=== PATIENT | male | born 1945 | race Caucasian/White ===

== ENCOUNTER 2018-03-30 05:51 | Emergency (ER) | payer MEDICARE, OTHER ==
[~2018-03-30] VITALS: Ht 182.9 cm; Wt 68.9 kg
[2018-03-30] MEDS ORDERED: SODIUM CHLORIDE 0.9% 1000ML 1,000 ML IV STA (06:20)
[2018-03-30 06:24] LABS: BASOPHILS % 0.2 % (0.0-1.0); EOSINOPHILS # (AUTO) 0.1 (0.0-0.4); EOSINOPHILS % 0.5 % (0.0-6.0); HEMATOCRIT 37.2 % (38.2-49.6); LYMPHOCYTES % 8.2 % (18.0-39.1); MEAN CORPUSCULAR HEMOGLOBIN 33.3 pg (28-32); MEAN CORPUSCULAR HGB CONC 34.9 g/dL (31-35); MEAN CORPUSCULAR VOLUME 95.4 fL (81-99); MONOCYTES # (AUTO) 0.5 (0.2-0.8); MONOCYTES % 3.9 % (4.4-11.3); NEUTROPHILS # (AUTO) 10.5 (2.1-6.9); NEUTROPHILS % 86.9 % (38.7-80.0); PLATELET COUNT 206 x10e3/uL (140-360); RED CELL DISTRIBUTION WIDTH 13.2 % (11.7-14.4)
[2018-03-30 06:28] LABS: CLARITY,URINE CLEAR (CLEAR); COLOR,URINE YELLOW (YELLOW)
[2018-03-30 06:29] LABS: BILIRUBIN,URINE NEGATIVE (NEGATIVE); KETONES,URINE NEGATIVE (NEGATIVE); LEUKOCYTE ESTERASE ,URINE NEGATIVE (NEGATIVE); NITRITE,URINE NEGATIVE (NEGATIVE); PROTEIN,URINE DIPSTICK NEGATIVE (NEGATIVE); URINE UROBILINOGEN 0.2 mg/dL (0.2 - 1)
[2018-03-30 06:40] LABS: WBC,URINE (MAN) 0-5 /HPF (0-5)
[2018-03-30 06:41] LABS: AMORPHOUS SEDIMENT,URINE FEW (FEW); BACTERIA,URINE FEW /HPF; EPITHELIAL CELLS,URINE FEW /LPF
[2018-03-30 06:43] LABS: ALANINE AMINOTRANSFERASE 25 IU/L (0-55); ALBUMIN 4.2 g/dL (3.5-5.0); ALBUMIN/GLOBULIN RATIO 1.2 (0.8-2.0); ALKALINE PHOSPHATASE 76 IU/L (40-150); ANION GAP 11.8 mmol/L (8-16); BLOOD UREA NITROGEN 12 mg/dL (7-26); BUN/CREATININE RATIO 14 (6-25); CALCIUM 9.8 mg/dL (8.4-10.2); CARBON DIOXIDE 26 mmol/L (22-29); CHLORIDE 100 mmol/L (98-107); CREATININE, SERUM 0.84 mg/dL (0.72-1.25); EST GLOMERULAR FILTRATION RATE > 60 ML/MIN (60-); GLUCOSE 121 mg/dL (74-118); POTASSIUM 3.8 mmol/L (3.5-5.1); SODIUM 134 mmol/L (136-145)
--- NOTE | 2018-03-30 07:51 | Diagnostic Imaging Report ---
EXAM: Abdomen 1 Views INDICATION: \S\CONSTIPATION AND URINARY RETENTION COMPARISON: None FINDINGS: Large amount of stool in the colon. No dilated loops of small bowel. No renal calculi. No abnormal soft tissue masses. Mild degenerative changes in the lumbar spine and pelvis. Right upper quadrant cholecystectomy clips. IMPRESSION: Large amount of stool. No dilated small bowel loops. Signed by: Dr. Sander Briones M.D. on 03/30/2018 7:47 AM
[2018-03-30 08:13] VITALS: BP 108/60
== END 2018-03-30 08:29 | disposition home or self-care (01) ==
LOC: ER 05:51
DX: R33.9 Retention of urine, unspecified (principal); R10.84 Generalized abdominal pain; N40.1 Benign prostatic hyperplasia with lower urinary tract symptoms; K59.00 Constipation, unspecified; K21.9 Gastro-esophageal reflux disease without esophagitis
CPT/HCPCS: 36415; 51700; 80053; 81001; 83735; 85025; 87086; 99284; J7030

== ENCOUNTER 2024-07-19 09:30 | Emergency (ER) | payer MEDICARE ==
[~2024-07-19] VITALS: Ht 182.9 cm; Wt 72.6 kg
[2024-07-19 09:42] VITALS: PULSE 80; RESP 18; TEMP 98.8; O2SAT 100
[2024-07-19] MEDS ORDERED: LIDOCAINE HCL 1% 2 ML AMP INJ ONE (10:15)
[2024-07-19] MEDS: LIDOCAINE HCL 1% LOCAL INJ 20 ML VIAL INJ ONE (10:20)
[2024-07-19] MEDS ORDERED: BACTRIM DS TAB1 EACH PO (10:23)
== END 2024-07-19 10:38 | disposition home or self-care (01) ==
LOC: ER 09:45
DX: L03.116 Cellulitis of left lower limb (principal); I80.02 Phlebitis and thrombophlebitis of superficial vessels of left lower extremity; N40.0 Benign prostatic hyperplasia without lower urinary tract symptoms; K21.9 Gastro-esophageal reflux disease without esophagitis
CPT/HCPCS: 10140; 99283; J2003